=== PATIENT | male | born 1960 | race Caucasian/White ===

== ENCOUNTER 2022-11-25 07:33 | Day surgery (SDC) | payer BC ==
[2022-11-18 11:46] LABS: BASOPHILS # (AUTO) 0.1 X10'3 (0-0.2); BASOPHILS % (AUTO) 0.8 % (0-1); EOSINOPHILS # (AUTO) 0.1 X10'3 (0-0.9); EOSINOPHILS % (AUTO) 0.7 % (0-6); LYMPHOCYTES % (AUTO) 22.9 % (21-51); MEAN CORPUSCULAR HEMOGLOBIN 32.6 PG (27.0-31.0); MEAN PLATELET VOLUME 7.2 FL (7.4-10.4); MONOCYTES % (AUTO) 11.6 % (2-12); NEUTROPHILS # (AUTO) 5.7 X10'3 (1.8-7.7); PRE OP HEMATOCRIT 47.1 % (42.0-52.0); PRE OP HEMOGLOBIN 16.5 g/dL (14.0-17.9); PRE OP PLATELET COUNT 267 X10'3 (140-440); RED BLOOD COUNT 5.07 X10'6 (4.70-6.10); RED CELL DISTRIBUTION WIDTH 14.1 % (11.5-14.5)
[2022-11-18 11:51] LABS: ALBUMIN 3.9 G/DL (3.4-5.0); ALBUMIN/GLOBULIN RATIO 1.1 (1.1-1.5); ALKALINE PHOSPHATASE 94 IU/L (46-116); BLOOD UREA NITROGEN 5 MG/DL (7-18); BUN/CREATININE RATIO 6.5 (10.0-20.0); CALCIUM 9.2 MG/DL (8.5-10.1); CHLORIDE 98 MMOL/L (99-107); CREATININE 0.77 MG/DL (0.60-1.10); PRE OP ALT 49 U/L (30-65); PRE OP ANION GAP 11 (8-16); PRE OP AST 35 U/L (10-37); PRE OP BILIRUB, TOTAL 0.6 MG/DL (0.0-1.0); PRE OP GLUCOSE 120 MG/DL (70-104); PRE OP POTASSIUM 4.4 MMOL/L (3.4-5.1); PRE OP SODIUM 131 MMOL/L (135-145); TOTAL CARBON DIOXIDE 22.1 MMOL/L (24-32); TOTAL PROTEIN 7.6 G/DL (6.4-8.2); eGFR > 90 ML/MIN
[2022-11-25] VITALS (7 sets, daily range): BP systolic 141–167; BP diastolic 82–98
[~2022-11-25] VITALS: Ht 182.9 cm; Wt 97.7 kg
[~2022-11-25 07:33] MED LIST: ALPR0.5T8 PO; AMLO5TAB16 PO; ASPI-611 PO; ATOR20TA66 PO; BUPIVAcaine/PF 2.5 mg/ml (0.25%) 30ml vial ONE; CHOL10006 PO; CYAN250010 PO; CYAN500T71 PO; LISI20TA28 PO; cefazolin 2gm/D5W 100mL 100 ML IV ONE; famotidine 20mg tablet PO ONE; ringers solution, lacted 1,000 ML IV SCH
[2022-11-25] MEDS ORDERED: ringers solution, lacted 1,000 ML IV SCH (09:55)
[2022-11-25] MEDS ORDERED: morphine 4 MG/ML inj SYRINge IV PRN (09:55)
[2022-11-25] MEDS ORDERED: meperidine/PF 25mg/ml syringe IV PRN ×3 (09:55)
[2022-11-25] MEDS ORDERED: ondansetron/PF 4mg/2ml inj IV PRN (09:55)
[2022-11-25] MEDS ORDERED: proCHLORperazine 10 MG/2 ml inj IV PRN (09:55)
[2022-11-25] MEDS ORDERED: morphine 2 MG/ML inj. syringe IV PRN (09:55)
[2022-11-25] MEDS ORDERED: LIDOcaine 0.5% (5mg/ml) 50ml vial ONE (10:21)
[2022-11-25] MEDS ORDERED: fentaNYL/PF 50MCG/1 ML 2ML syringe ONE ×2 (10:23→10:54)
[2022-11-25] MEDS ORDERED: MIDAZolam 1 MG/ML 5ML VIAL ONE (10:23)
[2022-11-25] MEDS ORDERED: ketamine 50mg/5ml syringe ONE (11:01)
[2022-11-25] MEDS ORDERED: propofol inj 40 ML IV ONE (11:21)
[2022-11-25] MEDS ORDERED: hydrALAZINE 20mg/ml inj. IV ONE (11:21)
[2022-11-25] MEDS ORDERED: diphenhydrAMINE 50 mg/ml inj ONE (11:21)
--- NOTE | 2022-11-25 11:43 | NUR ---
Received from OR via [facility], accompanied by Anesthesiologist DR FERNANDES and report given by Anesthesiologist. PT AWAKE, DENIES PAIN. LEFT HAND/WRIST/FINGERS W/BIAS DRSG COVERING INCISION/DRSG/SPLINT CDI. 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 Addendum: 11/25/22 at 1212 by Rosario Brunner RN Amended: Links added.
--- NOTE | 2022-11-25 12:33 | NUR ---
PT UP AND ABLE TO AMBULATE SAFELY, TO BATHROOM, VOIDED. PT NOTED TO HAVE A SMALL AMT OF BLOOD ON EDGE OF DRSG BETWEEN 2ND AND 3RD FINGERS, 2 4X4 GAUZE FOLDED AND PLACED IN CROOK OF FINGERS/DRSG, INSTRUCTED PT TO KEEP ELEVATED AND IF BLEEDING CONTINUES OR INCREASES TO CALL DR MATHUR. D/C INSTRUCTIONS GIVEN AND GONE OVER W/PT WHO VERBALIZED UNDERSTANDING. 20 MINUTES HAS PASSED SINCE BLOOD ON DRSG WAS NOTED, CURRENTLY THERE IS NO MORE BLOOD NOTED. PT D/CD TO HOME VIA W/C TO PRIVATE VEHICLE W/O INCIDENT. Addendum: 11/25/22 at 1249 by Rosario Brunner RN Amended: Links added.
== END 2022-11-25 12:33 | disposition home or self-care (01) ==
LOC: PRE-OP 07:33
PROVIDERS: ATTEND Orthopaedic Surgery Hand Surgery
DX: M72.0 Palmar fascial fibromatosis [Dupuytren] (principal); M65.332 Trigger finger, left middle finger; M65.342 Trigger finger, left ring finger; M65.322 Trigger finger, left index finger; I10 Essential (primary) hypertension; E66.9 Obesity, unspecified; Z68.29 Body mass index [BMI] 29.0-29.9, adult; Z79.899 Other long term (current) drug therapy; Z79.82 Long term (current) use of aspirin; Z98.890 Other specified postprocedural states; Z72.89 Other problems related to lifestyle; F17.210 Nicotine dependence, cigarettes, uncomplicated; Z86.73 Personal history of transient ischemic attack (TIA), and cerebral infarction without residual deficits
CPT/HCPCS: 26055; 26123; 26125; 36415; 80053; 85025; 93005; J0360; J0690; J1200; J2250; J2704; J3010; J3490; J7030; J7120; Z7506; Z7508; Z7512; A4215; A6449